=== PATIENT | female | born 1990 | race Hispanic/Latino ===

== ENCOUNTER 2021-03-26 09:25 | Day surgery (SDC) | payer MEDICAID, OTHER ==
[2021-03-26] MEDS ORDERED: hydrALAZINE 20 MG/ML VIAL SLOW IVP PRN (10:59)
[2021-03-26 13:05] VITALS: BMI 29.2
[2021-03-26 13:35] LABS: Bilirubin Neg (Negative); Blood, Urine Negative (Negative); Clarity Slightly Cloudy (Clear); Glucose, Urine (Dipstick) Normal (Negative); Ketone, Urine Negative (Negative); Leukocyte 100 (Negative); Nitrite Negative (Negative); Protein, Urine (Dipstick) Negative (Neg-Trace); Specific Gravity, Urine 1.005 (1.002-1.036); Urobilinogen Normal mg/dL (Less than 2)
[2021-03-26 13:42] LABS: Urine Culture Reflex No No
[2021-03-26 13:55] LABS: Bacteria/HPF 2+ HPF (None Seen); RBC/HPF 0-3 HPF (0-3)
== END 2021-03-26 12:50 | disposition home or self-care (01) ==
LOC: CSHLD/OP 09:25
PROVIDERS: ATTEND Obstetrics & Gynecology
DX: O99.891 Other specified diseases and conditions complicating pregnancy (principal); R10.2 Pelvic and perineal pain; Z3A.33 33 weeks gestation of pregnancy
CPT/HCPCS: 81001; 99283

== ENCOUNTER 2021-04-20 18:13 | Inpatient (IN) | payer OTHER ==
[2021-04-20 18:49] VITALS: BMI 27.4
[2021-04-20 19:13] LABS: Fetal Membranes Rupture RUPTURE DETECTED (No Rupture)
[2021-04-20] MEDS ORDERED: Ondansetron PF 4 MG/2 ML Vial IVP PRN (19:27)
[2021-04-20] MEDS ORDERED: Carboprost 250 MCG/ML AMP IM PRN (19:27)
[2021-04-20] MEDS ORDERED: Methylergonovine 0.2 MG/ML VIAL IM PRN (19:27)
[2021-04-20] MEDS ORDERED: hydrALAZINE 20 MG/ML VIAL SLOW IVP PRN (19:27)
[2021-04-20] MEDS ORDERED: Misoprostol 200 MCG TAB PR PRN (19:27)
[2021-04-20] MEDS ORDERED: Lidocaine 1% (PF) 30 ML VIAL SC PRN (19:27)
[2021-04-20] MEDS ORDERED: Promethazine HCl 25 MG/ML VIAL IM PRN (19:27)
[2021-04-20] MEDS ORDERED: Acetaminophen 500 MG TAB PO PRN (19:27)
[2021-04-20] MEDS ORDERED: Butorphanol Tartrate 1 MG/ML VIAL SLOW IVP PRN (19:27)
[2021-04-20] MEDS ORDERED: Ibuprofen 800 MG TAB PO PRN (19:27)
[2021-04-20] MEDS ORDERED: NS w/ Oxytocin 30 units 500 ML IV SCH ×2 (19:30)
[2021-04-20] MEDS ORDERED: Penicillin G Potassium 5 MILL.UNITS in Sodium Chloride 0.9% 100 ML IVPB SCH (19:30)
[2021-04-20] MEDS ORDERED: NS w/ Oxytocin 30 units 500 ML IVPB SCH (19:30)
[2021-04-20] MEDS: Lactated Ringer's 1,000 ML IV SCH (20:06)
[2021-04-20 20:35] LABS: Hemoglobin 11.7 g/dL (12.0-15.5); Mean Corpuscular HGB CONC 33.7 g/dL (32.0-36.0); Mean Corpuscular Hemoglobin 30.2 pg (27.0-33.0); Mean Corpuscular Volume 89.4 fl (81.6-98.3); Mean Platelet Volume 10.4 fl (7.4-10.4); Platelet Count 206 10x3/uL (150-450); Red Blood Cell (RBC) Count 3.88 10x6/uL (3.90-5.03); White Blood Cell (WBC) Count 10.3 10x3/uL (3.5-10.5)
[2021-04-20 21:06] LABS: Syphilis Antibody Nonreactive (Nonreactive); Syphilis Antibody Index 0.14 S/CO (<1.00 Non-Reactive)
[2021-04-20 21:23] LABS: SARS-CoV-2 NAA Rapid Test Not Detected (NotDetected)
[2021-04-20 21:49] LABS: Hep B Surf Ag Non-Reactive S/CO (NonReactive)
[2021-04-20 22:03] LABS: HBSAg Index 0.99 S/CO (0-0.99)
[2021-04-20] MEDS: Penicillin G 2.5 MILL.units 2.5 MILL.UNITS in Premix Bag 1 BAG IVPB SCH (23:42)
[2021-04-20] MEDS ORDERED: Fentanyl 2 mcg/Bup 0.1% Cadd 100 ML ONE (23:53)
[2021-04-21] MEDS: Lactated Ringer's 1,000 ML IV SCH (00:26)
[2021-04-21] MEDS ORDERED: Promethazine HCl 25 MG/ML VIAL IM PRN (00:35)
[2021-04-21] MEDS ORDERED: Acetaminophen 325 MG TAB PO PRN (00:35)
[2021-04-21] MEDS ORDERED: Naloxone HCl 0.4 mg/ml Vial IVP PRN ×2 (00:35)
[2021-04-21] MEDS ORDERED: Hydrocerin (Eucerin) Cream 120 gm Jar TOP PRN (00:35)
[2021-04-21] MEDS ORDERED: Ondansetron PF 4 MG/2 ML Vial IVP PRN ×2 (00:35→08:24)
[2021-04-21] MEDS ORDERED: Lactated Ringer's 500 ML IV PRN (00:35)
[2021-04-21] MEDS ORDERED: ePHEDrine Sulfate 50 MG/10 ML VIAL SLOW IVP PRN (00:35)
[2021-04-21] MEDS ORDERED: diphenhydrAMINE 50 MG/ML VIAL IVP PRN (00:35)
[2021-04-21] MEDS ORDERED: Communication Order-Pharmacy FS SCH (00:45)
[2021-04-21] MEDS ORDERED: Fentanyl 2 mcg/Bupivacaine 0.1% Cassette 100 ML EPIDURAL SCH (00:45)
[2021-04-21] MEDS: Penicillin G 2.5 MILL.units 2.5 MILL.UNITS in Premix Bag 1 BAG IVPB SCH (03:34)
[2021-04-21] MEDS ORDERED: Bupivacaine 0.25% HCL 30 ML VIAL ONE (08:00)
[2021-04-21] MEDS ORDERED: Preparation H Ointment 28 GM TUBE PR PRN (08:24)
[2021-04-21] MEDS ORDERED: Boostrix 0.5 ML (Tdap) VIAL IM ONE (08:24)
[2021-04-21] MEDS ORDERED: NS w/ Oxytocin 30 units 500 ML IV SCH (08:24)
[2021-04-21] MEDS ORDERED: diphenhydrAMINE 25 MG CAP PO PRN (08:24)
[2021-04-21] MEDS ORDERED: hydrALAZINE 20 MG/ML VIAL SLOW IVP PRN (08:24)
[2021-04-21] MEDS ORDERED: Bisacodyl 10 MG SUPP PR PRN (08:24)
[2021-04-21] MEDS ORDERED: Lanolin Ointment 7 GM TUBE TOP PRN (08:24)
[2021-04-21] MEDS ORDERED: Misoprostol 200 MCG TAB VAG PRN (08:24)
[2021-04-21] MEDS ORDERED: Milk Of Magnesia 30 ML UDCUP PO PRN (08:24)
[2021-04-21] MEDS ORDERED: Methylergonovine 0.2 MG/ML VIAL IM PRN (08:24)
[2021-04-21] MEDS ORDERED: Ferrous Sulfate 325 MG TAB PO SCH (08:45)
[2021-04-21] MEDS ORDERED: Ibuprofen 800 MG TAB PO SCH (08:45)
[2021-04-21] MEDS: Docusate Calcium (SURFAK) 240 MG CAP PO SCH ×2 (09:48→21:42)
[2021-04-21] MEDS: Prenatal Vitamin 1 TAB PO SCH (09:48)
[2021-04-21] MEDS: Ibuprofen 800 MG TAB PO SCH (14:10)
[2021-04-21] MEDS: Ferrous Sulfate 325 MG TAB PO SCH (18:09)
[2021-04-22] MEDS: Ibuprofen 800 MG TAB PO SCH ×3 (00:09→10:37)
[2021-04-22] MEDS: Ferrous Sulfate 325 MG TAB PO SCH (07:28)
[2021-04-22 07:51] VITALS: BP 100/57; TEMP 98
[2021-04-22] MEDS: Prenatal Vitamin 1 TAB PO SCH (08:01)
[2021-04-22] MEDS: Docusate Calcium (SURFAK) 240 MG CAP PO SCH (08:01)
== END 2021-04-22 12:15 | disposition home or self-care (01) | DRG 807 ==
LOC: CSHLD/OP 18:13 → UNDOADMIN 21:24 → CSHLD 21:24 → CSHPP 04-21 08:48 → CSHLD 04-21 08:48 → UNDODISIN 04-22 12:15
PROVIDERS: ADMIT Obstetrics & Gynecology; ATTEND Obstetrics & Gynecology
PROC: 10E0XZZ Delivery of Products of Conception, External Approach (ICD-10-PCS; principal; 2021-04-21)
DX: O99.824 Streptococcus B carrier state complicating childbirth (principal); Z37.0 Single live birth; O72.1 Other immediate postpartum hemorrhage; Z20.822 Contact with and (suspected) exposure to COVID-19; Z3A.37 37 weeks gestation of pregnancy; O69.81X0 Labor and delivery complicated by cord around neck, without compression, not applicable or unspecified; O70.0 First degree perineal laceration during delivery
CPT/HCPCS: 36415; 51702; 84112; 85027; 86780; 86850; 86900; 86901; 87340; 99285; J2540; J2590; J3490; J7120; S0020; U0002